=== PATIENT | male | born 1965 | race African-American/Black ===

== ENCOUNTER 2017-11-21 08:40 | Emergency (ER) | payer OTHER, SELFPAY ==
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
[2017-11-21] MEDS ORDERED: Ketorolac Tromethamine 30 MG/ML VIAL ONE (10:36)
[2017-11-21] MEDS ORDERED: ISOVUE-370 76%-LOCM 1 ML ONE (16:52)
== END 2017-11-21 10:42 | disposition home or self-care (01) ==
LOC: ERS 08:40
DX: S16.1XXA Strain of muscle, fascia and tendon at neck level, initial encounter (principal); S29.012A Strain of muscle and tendon of back wall of thorax, initial encounter; I10 Essential (primary) hypertension; E11.9 Type 2 diabetes mellitus without complications; Z79.84 Long term (current) use of oral hypoglycemic drugs; Z79.899 Other long term (current) drug therapy; V89.2XXA Person injured in unspecified motor-vehicle accident, traffic, initial encounter
CPT/HCPCS: 70450; 71260; 72125; 74177; 96374; 96375; J1885; J2270

== ENCOUNTER 2024-07-11 11:10 | Day surgery (SDC) | payer MEDICARE, BC ==
[2024-07-11 11:47] VITALS: BP 120/78; TEMP 97.9
[2024-07-11] MEDS: Meropenem 1 GM in Sodium Chloride 0.9% 100 ML IVPB SCH (11:49)
== END 2024-07-11 14:38 | disposition home or self-care (01) ==
LOC: ONC/OP 11:10
PROVIDERS: ATTEND Nurse Practitioner Family
DX: E11.621 Type 2 diabetes mellitus with foot ulcer (principal); L97.526 Non-pressure chronic ulcer of other part of left foot with bone involvement without evidence of necrosis; M86.172 Other acute osteomyelitis, left ankle and foot; I50.22 Chronic systolic (congestive) heart failure; I73.9 Peripheral vascular disease, unspecified
CPT/HCPCS: 96365; J1642; J2185; 36569; 76937; 77001; C1751

== ENCOUNTER → 2024-07-11 | Day surgery (SDC) | payer MEDICARE, BC ==
[~2024-07-11] MED LIST: Lidocaine 1% PF 5 ML VIAL ONE; Sodium Bicarbonate 0.5 MEQ/ML SDV 10 ML ONE
== END ==
LOC: SPEC 10:00
PROVIDERS: ATTEND Nurse Practitioner Family
DX: E11.621 Type 2 diabetes mellitus with foot ulcer (principal); L97.526 Non-pressure chronic ulcer of other part of left foot with bone involvement without evidence of necrosis; M86.172 Other acute osteomyelitis, left ankle and foot; I50.22 Chronic systolic (congestive) heart failure; I73.9 Peripheral vascular disease, unspecified
CPT/HCPCS: 36569; 76937; 77001

== ENCOUNTER 2025-06-11 12:27 | Outpatient (CLI) | payer MEDICARE, BC | END 2025-06-11 12:28 | disposition home or self-care (01) | LOC: RAD 12:27 | PROVIDERS: ATTEND Nurse Practitioner Family | DX: L97.526 Non-pressure chronic ulcer of other part of left foot with bone involvement without evidence of necrosis (principal); E11.621 Type 2 diabetes mellitus with foot ulcer; M86.172 Other acute osteomyelitis, left ankle and foot; I50.22 Chronic systolic (congestive) heart failure; E11.59 Type 2 diabetes mellitus with other circulatory complications | CPT/HCPCS: 11042 ==

== ENCOUNTER 2025-07-09 12:26 | Outpatient (CLI) | payer MEDICARE, BC | END 2025-07-09 12:27 | disposition home or self-care (01) | LOC: RAD 12:26 | PROVIDERS: ATTEND Nurse Practitioner Family | DX: L97.526 Non-pressure chronic ulcer of other part of left foot with bone involvement without evidence of necrosis (principal); M86.9 Osteomyelitis, unspecified ==